=== PATIENT | male | born 1960 | race African-American/Black ===

== ENCOUNTER 2017-05-06 08:43 | Inpatient (IN) | payer SELFPAY ==
[2017-05-06 09:19] LABS: ADD MAN DIFF? NO
[2017-05-06 09:22] LABS: BASO % 1 % (0-3); EOS # 0.2 x10^3/uL (0.0-0.7); EOS % 2 % (0-3); HEMATOCRIT 48.3 % (39.0-53.0); HEMOGLOBIN 16.8 g/dL (13.0-17.5); LYMPH % 13 % (24-48); MEAN CORPUSCULAR HEMOGLOBIN 30 pg (25-35); MEAN CORPUSCULAR HGB CONC 35 g/dL (31-37); MEAN CORPUSCULAR VOLUME 86 fL (79-100); MONO # 0.8 x10^3/uL (0.0-1.1); MONO % 11 % (0-9); NEUT # 5.3 x10^3uL (1.8-7.7); NEUT % 73 % (31-73); PLATELET COUNT 215 x10^3/uL (140-400); RED BLOOD COUNT 5.59 x10^6/uL (4.30-5.70); WHITE BLOOD COUNT 7.3 x10^3/uL (4.0-11.0)
[2017-05-06] MEDS: IV NORMAL SALINE 1000ML BAG 1,000 ML IV ×2 (09:31→10:27)
[2017-05-06] MEDS: KETOROLAC 30 MG/ML INJ. IV (09:32)
[2017-05-06 09:42] LABS: ANION GAP 11 (6-14); BLOOD UREA NITROGEN 16 mg/dL (8-26); BUN/CREATININE RATIO 20 (6-20); CALCIUM 9.1 mg/dL (8.5-10.1); CARBON DIOXIDE 27 mmol/L (21-32); CHLORIDE 97 mmol/L (98-107); CREATININE 0.8 mg/dL (0.7-1.3); GFR 121.9; GLUCOSE 318 mg/dL (70-99); POTASSIUM 4.6 mmol/L (3.5-5.1); SODIUM 135 mmol/L (136-145)
[2017-05-06 09:48] LABS: ALBUMIN 3.7 g/dL (3.4-5.0); ALBUMIN/GLOBULIN RATIO 0.9 (1.0-1.7); ALK PHOS 109 U/L (46-116); ALT (SGPT) 32 U/L (16-63); AST (SGOT) 14 U/L (15-37); TOTAL BILIRUBIN 0.5 mg/dL (0.2-1.0); TOTAL PROTEIN 7.9 g/dL (6.4-8.2)
[2017-05-06 09:50] LABS: TROPONINI < 0.017 ng/mL (0.000-0.055)
[2017-05-06 10:44] LABS: INFLUENZA A PATIENT POSITIVE (NEGATIVE); INFLUENZA B PATIENT NEGATIVE (NEGATIVE); OBC FLU VALID
[2017-05-06] MEDS ORDERED: ONDANSETRON PF 4 MG/2 ML VIAL. IV (11:00)
[2017-05-06] MEDS ORDERED: MORPHINE SULFATE 2 MG/ML DISP.SYRIN. IV (11:00)
[2017-05-06 11:02] LABS: BILIRUBIN,URINE SMALL (NEG); CLARITY,URINE CLEAR; COLOR,URINE YELLOW; GLUCOSE,URINE >=1000 mg/dL (NEG); NITRITE,URINE NEGATIVE (NEG); PH,URINE 5.5; PROTEIN,URINE 30 mg/dL (NEG-TRACE); UROBILINOGEN,URINE 0.2 mg/dL (0.2 mg/dL)
[2017-05-06 11:20] LABS: BACTERIA,URINE 0 /HPF (0-FEW); RBC,URINE 0 /HPF (0-2); SQUAMOUS EPITHELIAL CELL,UR FEW /LPF; WBC,URINE OCC /HPF (0-4)
[2017-05-06] MEDS ORDERED: DEXTROSE 50% 25 GM / 50ML DISP.SYRIN. IV (15:00)
[2017-05-06 16:40] LABS: POC GLUCOSE 246 mg/dL (70-99)
[2017-05-06] MEDS: OSELTAMIVIR 75 MG CAPSULE PO (16:55)
[2017-05-06] MEDS: INSULIN DETEMIR 300 UNITS/3 ML INSULN.PEN. SQ (17:08)
[2017-05-06] MEDS: INSULIN ASPART 300 UNITS/3 ML INSULN.PEN SQ (17:08)
[2017-05-06] MEDS: ENOXAPARIN 40 MG/0.4 ML SYRINGE. SQ (17:21)
[2017-05-06 18:01] LABS: TROPONINI < 0.017 ng/mL (0.000-0.055)
[2017-05-06 20:38] LABS: POC GLUCOSE 261 mg/dL (70-99)
[2017-05-06] MEDS: ACETAMINOPHEN 325 MG TABLET. PO (20:53)
[2017-05-07] MEDS: OSELTAMIVIR 75 MG CAPSULE PO ×2 (00:42→08:28)
[2017-05-07 04:41] LABS: ADD MAN DIFF? NO
[2017-05-07 04:43] LABS: BASO % 1 % (0-3); EOS # 0.3 x10^3/uL (0.0-0.7); EOS % 7 % (0-3); HEMATOCRIT 43.4 % (39.0-53.0); HEMOGLOBIN 14.8 g/dL (13.0-17.5); LYMPH # 2.1 x10^3/uL (1.0-4.8); LYMPH % 44 % (24-48); MEAN CORPUSCULAR HEMOGLOBIN 30 pg (25-35); MEAN CORPUSCULAR HGB CONC 34 g/dL (31-37); MEAN CORPUSCULAR VOLUME 87 fL (79-100); MONO # 0.6 x10^3/uL (0.0-1.1); MONO % 12 % (0-9); NEUT # 1.8 x10^3uL (1.8-7.7); NEUT % 37 % (31-73); PLATELET COUNT 183 x10^3/uL (140-400); RED BLOOD COUNT 5.02 x10^6/uL (4.30-5.70); RED CELL DISTRIBUTION WIDTH 13.4 % (11.5-14.5); WHITE BLOOD COUNT 4.8 x10^3/uL (4.0-11.0)
[2017-05-07 05:19] LABS: ALBUMIN/GLOBULIN RATIO 0.9 (1.0-1.7); ALK PHOS 89 U/L (46-116); ALT (SGPT) 22 U/L (16-63); ANION GAP 12 (6-14); AST (SGOT) 9 U/L (15-37); BLOOD UREA NITROGEN 17 mg/dL (8-26); BUN/CREATININE RATIO 28 (6-20); CALCIUM 8.5 mg/dL (8.5-10.1); CARBON DIOXIDE 22 mmol/L (21-32); CHLORIDE 103 mmol/L (98-107); CREATININE 0.6 mg/dL (0.7-1.3); GFR 169.9; GLUCOSE 220 mg/dL (70-99); POTASSIUM 3.5 mmol/L (3.5-5.1); SODIUM 137 mmol/L (136-145); TOTAL BILIRUBIN 0.4 mg/dL (0.2-1.0); TOTAL PROTEIN 6.5 g/dL (6.4-8.2)
[2017-05-07] MEDS: INSULIN ASPART 300 UNITS/3 ML INSULN.PEN SQ ×2 (08:00→12:00)
[2017-05-07 08:24] LABS: POC GLUCOSE 216 mg/dL (70-99)
[2017-05-07] MEDS: LISINOPRIL 5 MG TABLET. PO (10:48)
[2017-05-07 11:50] LABS: POC GLUCOSE 281 mg/dL (70-99)
[2017-05-07] MEDS: IV NORMAL SALINE 1000ML BAG 1,000 ML IV (14:45)
[2017-05-07] MEDS ORDERED: INSULIN DETEMIR 300 UNITS/3 ML INSULN.PEN. SQ (21:00)
[2017-05-07] MEDS ORDERED: ATORVASTATIN CALCIUM 10 MG TABLET. PO (21:00)
[2017-05-07 22:14] LABS: HEMOGLOBIN A1C 11.2 % (4.8-5.6)
== END 2017-05-07 17:23 | disposition left against medical advice (07) | DRG 641 ==
LOC: ER 08:43 → 5 NORTH 10:27
DX: E86.0 Dehydration (principal); E11.65 Type 2 diabetes mellitus with hyperglycemia; J10.1 Influenza due to other identified influenza virus with other respiratory manifestations; Z53.21 Procedure and treatment not carried out due to patient leaving prior to being seen by health care provider
CPT/HCPCS: 36415; 70450; 71046; 80053; 81001; 82962; 83036; 84484; 85025; 87804; 87804-59; 93005; 93306; 96361; 96374; 99285; 99285-25; J1650; J1815; J1885; J7030